=== PATIENT | female | born 1955 | race Caucasian/White ===

== ENCOUNTER 2017-12-02 19:32 | Emergency (ER) | payer BC ==
[2017-12-02 19:44] VITALS: BP 139/84
[2017-12-02] MEDS ORDERED: Lidocaine 1% with EPINEPHrine 1:100,000 20 ML MDV INJECT ONE (20:26)
[2017-12-02] MEDS ORDERED: Bupivacaine 0.5% 10 ML SDV INJECT ONE (20:26)
[2017-12-02] MEDS ORDERED: Amoxicillin/Clavulanate K 875-125 MG Tab PO ONE (21:26)
--- NOTE | 2017-12-02 21:38 | EDM.PDOC ---
ED HPI GENERAL MEDICAL PROBLEM - General Chief Complaint: Bite:Animal, Insect Stated Complaint: DOG BITE LEFT ANKLE Time Seen by Provider: 12/02/17 19:39 Source of Information: Reports: Patient, RN Notes Reviewed History Limitations: Reports: No Limitations - History of Present Illness INITIAL COMMENTS - FREE TEXT/NARRATIVE: The patient states that 3 of her dogs were fighting, and that she tried to break the fight up, accidentally getting bitten by one of the dogs in several locations on her left ankle, around 19:10 this evening. She is not injured elsewhere. The patient states that her last tetanus vaccination was in January 2012. The patient's PCP is Shameka Esteban. Left Ankle Pain Score (Numeric/FACES): 2 - Related Data Allergies Allergy/AdvReac Type Severity Reaction Status Date / Time Sulfa (Sulfonamide Allergy Rash Verified 12/02/17 19:44 Antibiotics) Home Meds: Home Meds Amoxicillin/Potassium Clav [Augmentin 875-125 Tablet] 1 tab PO Q12H #9 tablet [Rx] Past Medical History HEENT History: Reports: Impaired Vision Genitourinary History: Reports: Other (See Below) (Congenital solitary right kidney) Social & Family History - Tobacco Use Smoking Status *Q: Never Smoker - Caffeine Use Caffeine Use: Reports: Coffee, Tea - Alcohol Use Alcohol Use History: No - Recreational Drug Use Recreational Drug Use: No - Living Situation & Occupation Living situation: Reports: , Alone Occupation: Employed (Pharmacist at [employer]) ED ROS GENERAL - Review of Systems Review Of Systems: ROS reveals no pertinent complaints other than HPI. ED EXAM, ANIMAL BITE - Physical Exam Exam: See Below Exam Limited By: No Limitations General Appearance: Alert, WD/WN, No Apparent Distress Extremities: Other (There are three very small lacerations to the medial aspect of the left ankle, one measuring approximately 0.5 cm, the other two only about 0.25 cm, and one large laceration, measuring approximately 3.5 cm. There are 5 small lacerations on the anterolateral and lateral aspect of the left ankle, two measuring approximately 1 cm, two measuring about 0.5 cm, and the last one measuring approximally 0.25 cm. Neurovascular status of the left lower extremity is intact.) ED ANIMAL BITE PROCEDURES - Laceration/Wound Repair Left Ankle Lac/Wound Length In cm: 7.5 Appearance: Subcutaneous, Irregular, Clean Distal NVT: Neuro & Vascular Intact, No Tendon Injury Anesthetic Type: Local Local Anesthesia - Lidocaine (Xylocaine): 1% with EPI (50:50 admixture) Local Anesthesia - Bupivicaine (Marcaine): 0.5% Plain (50:50 admixture) Local Anesthetic Volume: Other (8 ml) Skin Prep: Providone-Iodine (Betadine) Exploration/Debridement/Repair: Wound Explored, In a Bloodless Field, Explored to Base, No Foreign Material Found, Wound Margins Revised Closed With: Sutures Suture Size: 3-0 # of Sutures: 12 Suture Type: Nylon (Ethilon) Drain Placement: No Sterile Dressing Applied: Nurse Tetanus Status Addressed: Yes Complications: No Course - Vital Signs Last Recorded V/S: Last Vital Signs Temp 36.3 C 12/02/17 19:39 Pulse 77 12/02/17 19:39 Resp 18 12/02/17 19:39 BP 139/84 12/02/17 19:39 Pulse Ox 98 12/02/17 19:39 - Orders/Labs/Meds Meds: Medications Discontinued Medications Generic Name Dose Route Start Last Admin Trade Name Kareemq PRN Reason Stop Dose Admin Amoxicillin/Clavulanate Potassium 1 tab 12/02/17 21:26 12/02/17 21:36 Augmentin 875 Mg/125 Mg PO 12/02/17 21:27 1 tab ONETIME ONE Administration Bupivacaine HCl 10 ml 12/02/17 20:26 12/02/17 20:31 Sensorcaine-Mpf 0.5% INJECT 12/02/17 20:27 10 ml ONETIME ONE Administration Lidocaine/Epinephrine 20 ml 12/02/17 20:26 12/02/17 20:31 Xylocaine 1% With Epinephrine 1:100,000 INJECT 12/02/17 20:27 20 ml ONETIME ONE Administration - Re-Assessments/Exams Free Text/Narrative Re-Assessment/Exam: 12/02/17 21:30 After local infiltration with a 50:50 admixture of lidocaine 1% with epinephrine and bupivacaine 0.5% without epinephrine, a total of 6 wounds, with a combined measurement of 7.5 cm, were closed with a total of 12 simple interrupted sutures, using 3-0 Ethylon. The patient tolerated the procedure well. A sterile dressing will be applied to the wounds per Susana GAVIN. The patient will receive her first dose of Augmentin 875/125 here in the ED, and a 5 day course will be sent to the [facility]. The patient's tetanus vaccination is already up-to-date. Departure - Departure Time of Disposition: 21:33 Disposition: Home, Self-Care 01 Condition: Good Clinical Impression: Dog bite of left lower leg - Discharge Information *PRESCRIPTION DRUG MONITORING PROGRAM REVIEWED*: Not Applicable *COPY OF PRESCRIPTION DRUG MONITORING REPORT IN PATIENT LUIS: Not Applicable Prescriptions: Amoxicillin/Potassium Clav [Augmentin 875-125 Tablet] 1 tab PO Q12H #9 tablet Instructions: Animal Bite, [id number] Referrals: Shameka Esteban PA [Primary Care Provider] - Forms: ED Department Discharge Additional Instructions: You were seen in the emergency room after being bitten in numerous locations on your left ankle by one of your dogs. You received a total of 12 sutures to close a total of 6 lacerations. Keep the wounds clean with ordinary soap and water. Apply a clean dressing, daily, to prevent the sutures from rubbing on your clothes or shoes. We recommend that you NOT apply an antibiotic ointment to the wounds. Take [id number] Tylenol or ibuprofen as needed for discomfort. You have been started on the antibiotic Augmentin. A prescription for Augmentin has been sent to the [facility], located in the [employer] grocery store. Take one tablet every 12 hours, starting tomorrow morning, 12/03/2017, as prescribed. Finish the entire prescription unless told otherwise by a doctor. The sutures should be ready for removal on 12/10/2017. This can be done at a walk-in clinic, by a nurse at your doctor's office, or in the ER. If any other problems, please do not hesitate to return to the ER.
== END 2017-12-02 21:44 | disposition home or self-care (01) ==
LOC: JD.ED 19:32
DX: S91.052A Open bite, left ankle, initial encounter (principal); W54.0XXA Bitten by dog, initial encounter; Z88.2 Allergy status to sulfonamides
CPT/HCPCS: 12002; 99283; A9270; J3490